=== PATIENT | female | born 1950 | race Caucasian/White ===

== ENCOUNTER 2018-06-13 21:36 | Emergency (ER) | payer MEDICARE, OTHER ==
[2018-06-13] MEDS: HYDROCODONE/APAP (5/325) TAB PO (23:31)
== END 2018-06-14 03:08 | disposition home or self-care (01) ==
LOC: FTE 21:36
DX: S22.43XA Multiple fractures of ribs, bilateral, initial encounter for closed fracture (principal); I10 Essential (primary) hypertension; X58.XXXA Exposure to other specified factors, initial encounter; Y92.9 Unspecified place or not applicable
CPT/HCPCS: 71046; 71110; 99283-25